=== PATIENT | female | born 1960 | race Caucasian/White ===

== ENCOUNTER 2016-12-11 18:01 | Outpatient (CLI) | payer MEDICARE, MEDICAID | END 2016-12-11 18:02 | disposition home or self-care (01) | DX: Z79.899 Other long term (current) drug therapy (principal) ==

== ENCOUNTER 2017-05-20 11:32 | Outpatient (CLI) | payer MEDICARE, MEDICAID ==
--- NOTE | 2017-05-20 17:54 | CT Report ---
CT CHEST WITHOUT CONTRAST: 05/20/2017 CLINICAL INDICATION: Solitary pulmonary nodule. Axial CT images of the chest were obtained without intravenous contrast. In accordance with CT protocol optimization, one or more of the following dose reduction techniques w ere utilized for this exam: automated exposure control, adjustment of mA and/or KV based on patient size, or use of iterative reconstructive technique. COMPARISON: 04/27/2015, 06/20/2014, 02/24/2014. The heart and great vessels are unremarkable. No hilar or mediastinal lymphadenopathy is present. T he previously noted pulmonary nodule in the anterior left lower lobe is stable, measuring 6 mm. Tiny calcified granulomas are stable. No new or enlarging pulmonary nodule is seen. No effusion or pneu mothorax is present. Limited evaluation of upper abdominal structures demonstrates normal adrenal gl ands. The previously noted hepatic cyst and hemangioma appear unchanged. Osseous structures demonst rate degenerative changes. IMPRESSION: STABLE 6 MM PULMONARY NODULE IN THE LEFT LOWER LOBE. GIVEN THREE YEAR STABILITY, FURTHE R FOLLOWUP IS NOT TYPICALLY RECOMMENDED. JOB #: [id number] EXT JOB #:[id number]
== END 2017-05-20 11:33 | disposition home or self-care (01) ==
LOC: DI 11:32
PROVIDERS: ATTEND Nurse Practitioner Gerontology
DX: R91.1 Solitary pulmonary nodule (principal)
CPT/HCPCS: 71250

== ENCOUNTER 2017-11-19 09:01 | Outpatient (CLI) | payer MEDICARE, MEDICAID ==
[2017-11-19 09:42] LABS: BASOPHILS % (AUTO) 0.9 %; EOSINOPHILS # (AUTO) 0.1 10^3/uL (0.0-0.7); EOSINOPHILS % (AUTO) 3.1 %; HGB - HEMOGLOBIN 13.4 g/dL (12.0-16.0); LYMPHOCYTES # (AUTO) 1.9 10^3/uL (1.5-3.5); LYMPHOCYTES % (AUTO) 40.3 %; MEAN CORPUSCULAR HEMOGLOBIN 30.7 pg (27.0-31.0); MEAN CORPUSCULAR HGB CONC 33.3 g/dL (32.0-36.0); MEAN CORPUSCULAR VOLUME 92.2 fL (81.0-99.0); MEAN PLATELET VOLUME 7.3 fL (7.9-10.8); MONOCYTES # (AUTO) 0.3 10^3/uL (0.0-1.0); MONOCYTES % (AUTO) 6.7 %; NEUTROPHILS # (AUTO) 2.3 10^3/uL (1.5-6.6); PLT - PLATELET COUNT 452 10^3/uL (130-450); RED BLOOD COUNT 4.38 10^6/uL (4.20-5.40); RED CELL DISTRIBUTION WIDTH 13.6 % (12.0-15.0); WHITE BLOOD COUNT 4.7 x10^3/uL (4.8-10.8)
[2017-11-19 09:51] LABS: HB2 TOTAL 14.5 g/dL; HEMOGLOBIN A1C 0.61 g/dL
[2017-11-19 09:58] LABS: ALBUMIN 4.2 g/dL (3.2-5.5); ALBUMIN/GLOBULIN RATIO 1.4 (1.0-2.2); ALKALINE PHOSPHATASE 65 IU/L (42-121); ALT ALANINE AMINOTRANSFERASE 21 IU/L (10-60); AST ASPARTATE AMINOTRANSFERASE 21 IU/L (10-42); BILIRUBIN,TOTAL 0.8 mg/dL (0.2-1.0); BUN - BLOOD UREA NITROGEN 13 mg/dL (6-20); CALCIUM 9.3 mg/dL (8.5-10.3); CARBON DIOXIDE - CO2 25 mmol/L (21-32); CHLORIDE 103 mmol/L (101-111); CHOL/HDL RATIO 3.3 (<4.4); CHOLESTEROL 168 mg/dL; CREATININE 0.7 mg/dL (0.4-1.0); GFR - MDRD 87 (>89); GLUCOSE 102 mg/dL (70-100); HDL CHOLESTEROL 51 mg/dL; LDL CHOLESTEROL,CALCULATED 92 mg/dL; LDL/HDL RATIO 1.8 (<4.4); PHOSPHORUS 3.3 mg/dL (2.5-4.6); SODIUM 136 mmol/L (135-145); TOTAL PROTEIN 7.1 g/dL (6.7-8.2); VLDL CHOLESTEROL 25 mg/dL
[2017-11-19 10:10] LABS: THYROID STIMULATING HORMONE 1.87 uIU/mL (0.34-5.60)
[2017-11-19 10:17] LABS: PROLACTIN 127.7 ng/mL
== END 2017-11-19 09:02 | disposition home or self-care (01) ==
LOC: LAB 09:01
PROVIDERS: ATTEND Nurse Practitioner Gerontology
DX: Z13.9 Encounter for screening, unspecified (principal); R73.9 Hyperglycemia, unspecified; E78.5 Hyperlipidemia, unspecified; E22.1 Hyperprolactinemia; Z79.899 Other long term (current) drug therapy
CPT/HCPCS: 36415; 80053; 80061; 82306; 83036; 83721; 83970; 84100; 84146; 84443; 85025

== ENCOUNTER 2017-12-09 10:04 | Outpatient (CLI) | payer MEDICARE, MEDICAID ==
--- NOTE | 2017-12-10 14:05 | DEXA Report ---
DEXA SCAN: 12/09/2017 CLINICAL INDICATION: Postmenopausal. TECHNIQUE: Dual energy x-ray absorptiometry (DXA) was performed on a [employer] system. Regions measured are the AP spine, femoral neck, and, if needed, forearm. COMPARISON: None. In accordance with the International Society for Clinical Densitometry (ISCD) guidelines, data from previous exams may be reanalyzed using current recommendations and techniques. This is done to allow a more accurate basis for comparison with the current study. FINDINGS Data for the lumbar spine is as follows: REGION BMD (g/cm/cm) T-SCORE Z-SCORE L1 0.907 -1.9 -0.8 L2 0.866 -2.8 -1.7 L3 0.891 -2.6 -1.5 L4 0.852 -2.9 -1.8 L1-L4 0.877 -2.5 -1.4 NOTE: All evaluable vertebrae are used for classification. Data for the hip is as follows: REGION BMD (g/cm/cm) T-SCORE Z-SCORE Neck 0.741 -2.1 -0.9 TOTAL 0.821 -1.5 -0.6 NOTE: The femoral neck or total proximal femur, whichever is lowest, is used for classification. IMPRESSION THE WHO CLASSIFICATION BASED ON THE INTERNATIONAL REFERENCE STANDARD IS OSTEOPOROSIS. THE FRACTURE RISK IS HIGH. RECOMMENDATION: Patients with diagnosis of osteoporosis or osteopenia should have regular bone mineral density assessment. For those eligible for Medicare, routine testing is allowed once every 2 years. Testing frequency can be increased for patients who have rapidly progressing disease or for those who are receiving medical therapy to restore bone mass. COMMENT World Health Organization (WHO) definitions for osteoporosis and osteopenia: NORMAL BMD: T-score at 1.0 or higher, fracture risk is low. OSTEOPENIA BMD: T-score between 1.0 and -2.5, fracture risk is increased. OSTEOPOROSIS BMD: T-score at 2.5 or lower, fracture risk high. National Osteoporosis Foundation recommends: 1. Obtain adequate dietary calcium (at least 1200 mg per day) and vitamin D (400 -800 international units per day). 2. Participate, as appropriate, in regular weightbearing and muscle- strengthening exercise. 3. Avoid tobacco use and reduce alcohol and caffeine intake. 4. For more detailed information see the website at www.NOF.org. TD: 12/09/2017 12:41 MTDD
== END 2017-12-09 10:05 | disposition home or self-care (01) ==
LOC: DI 10:04
PROVIDERS: ATTEND Nurse Practitioner Gerontology
DX: M81.0 Age-related osteoporosis without current pathological fracture (principal)
CPT/HCPCS: 77080

== ENCOUNTER 2018-05-21 10:10 | Outpatient (CLI) | payer MEDICARE, MEDICAID ==
--- NOTE | 2018-05-21 12:07 | XRAY Report ---
Reason: ABNORMAL BREATH SOUNDS Procedure Date: 05/21/2018 Accession Number: [id number] / [id number] Procedure: XR - Chest 2 View X-Ray CPT Code: 43776 FULL RESULT: EXAM: CHEST RADIOGRAPHY EXAM DATE: 05/21/2018 10:25 AM. CLINICAL HISTORY: ABNORMAL BREATH SOUNDS. COMPARISON: Chest CT 05/20/2017. TECHNIQUE: 2 views. FINDINGS: Lungs/Pleura: There is stable appearing scar and/or atelectasis of the lingula. This finding likely obscures a small pulmonary nodule of the lingula that was seen on prior CT. Mediastinum: Heart and mediastinal contours appears otherwise unremarkable. IMPRESSION: Stable appearing scar and/or atelectasis of the lingula Pulmonary nodule seen on prior CT is likely obscured by this finding. RADIA
== END 2018-05-21 10:11 | disposition home or self-care (01) ==
LOC: DI 10:10
PROVIDERS: ATTEND Nurse Practitioner Gerontology
DX: R09.89 Other specified symptoms and signs involving the circulatory and respiratory systems (principal)
CPT/HCPCS: 71046

== ENCOUNTER 2019-01-06 08:00 | Outpatient (CLI) | payer MEDICARE, MEDICAID ==
[2019-01-06 13:13] LABS: HB2 TOTAL 14.9 g/dL; HEMOGLOBIN A1C 0.59 g/dL; HEMOGLOBIN A1C % 5.8 % (4.6-6.2)
[2019-01-06 13:16] LABS: ALBUMIN 4.1 g/dL (3.2-5.5); ALBUMIN/GLOBULIN RATIO 1.6 (1.0-2.2); ALKALINE PHOSPHATASE 39 IU/L (42-121); ALT ALANINE AMINOTRANSFERASE 21 IU/L (10-60); AST ASPARTATE AMINOTRANSFERASE 22 IU/L (10-42); BILIRUBIN,TOTAL 0.6 mg/dL (0.2-1.0); BUN - BLOOD UREA NITROGEN 15 mg/dL (6-20); CALCIUM 9.4 mg/dL (8.5-10.3); CARBON DIOXIDE - CO2 27 mmol/L (21-32); CHLORIDE 100 mmol/L (101-111); CHOL/HDL RATIO 3.2 (<4.4); CHOLESTEROL 135 mg/dL; CREATININE 0.8 mg/dL (0.4-1.0); GFR - MDRD 74 (>89); GLUCOSE 103 mg/dL (70-100); HDL CHOLESTEROL 42 mg/dL; LDL CHOLESTEROL,CALCULATED 70 mg/dL; LDL/HDL RATIO 1.7 (<4.4); SODIUM 134 mmol/L (135-145); TOTAL PROTEIN 6.6 g/dL (6.7-8.2); VLDL CHOLESTEROL 23 mg/dL
== END 2019-01-06 23:59 | disposition home or self-care (01) ==
LOC: LAB.N 08:00
PROVIDERS: ATTEND Licensed Practical Nurse
DX: F25.9 Schizoaffective disorder, unspecified (principal); Z79.899 Other long term (current) drug therapy
CPT/HCPCS: 36415; 80053; 80061; 83036; 83721; 84146

== ENCOUNTER 2019-01-21 08:25 | Outpatient (CLI) | payer MEDICARE, MEDICAID ==
--- NOTE | 2019-01-22 11:19 | Mammography Report ---
Reason: SCREENING EXAM FOR BREAST CANCER Procedure Date: 01/21/2019 Accession Number: [id number] / [id number] Procedure: MGN - Screening Mammo Dig Bilat CPT Code: FULL RESULT: EXAM: Screening Mammo Dig Bilat DATE: 01/21/2019 9:00 AM CLINICAL HISTORY: Routine screening TECHNIQUE: (B) - Bilateral CC and MLO views were obtained. COMPARISON: 02/05/2016 PARENCHYMAL PATTERN: (D) - The breasts demonstrate heterogeneously dense fibroglandular parenchyma bilaterally. FINDINGS: No significant interval change. Innumerable scattered benign-appearing calcifications are again appreciated. There are no new suspicious masses, calcifications, or areas of distortion. IMPRESSION: Negative examination. BI-RADS category 1. RECOMMENDATION: (ANNUAL) - Recommend routine annual screening mammography. BI-RADS CATEGORY: (1) - Negative. STANDARD QUALIFYING STATEMENTS: 1. This examination was not reviewed with the aid of Computer-Aided Detection (CAD). 2. A negative or benign imaging report should not preclude biopsy if clinically suspicious findings are present. 3. Dense breasts may obscure an underlying neoplasm. 4. This examination was reviewed without the aid of 3D breast imaging (tomosynthesis).
== END 2019-01-21 08:26 | disposition home or self-care (01) ==
LOC: DI.N 08:25
PROVIDERS: ATTEND Nurse Practitioner Gerontology
DX: Z12.31 Encounter for screening mammogram for malignant neoplasm of breast (principal)
CPT/HCPCS: 77067

== ENCOUNTER 2020-03-16 09:03 | Outpatient (CLI) | payer MEDICARE, MEDICAID ==
[2020-03-16 12:05] LABS: BASOPHILS % (AUTO) 0.6 %; EOSINOPHILS # (AUTO) 0.1 10^3/uL (0.0-0.7); EOSINOPHILS % (AUTO) 1.4 %; HGB - HEMOGLOBIN 13.9 g/dL (12.0-16.0); LYMPHOCYTES # (AUTO) 1.9 10^3/uL (1.5-3.5); LYMPHOCYTES % (AUTO) 27.5 %; MEAN CORPUSCULAR HEMOGLOBIN 33.7 pg (27.0-31.0); MEAN CORPUSCULAR HGB CONC 35.4 g/dL (32.0-36.0); MEAN CORPUSCULAR VOLUME 95.4 fL (81.0-99.0); MEAN PLATELET VOLUME 9.8 fL (7.9-10.8); MONOCYTES # (AUTO) 0.4 10^3/uL (0.0-1.0); MONOCYTES % (AUTO) 5.7 %; NEUTROPHILS # (AUTO) 4.5 10^3/uL (1.5-6.6); NEUTROPHILS % (AUTO) 64.5 %; PLT - PLATELET COUNT 433 10^3/uL (130-450); RED BLOOD COUNT 4.12 10^6/uL (4.20-5.40); RED CELL DISTRIBUTION WIDTH 11.9 % (12.0-15.0); WHITE BLOOD COUNT 6.9 x10^3/uL (4.8-10.8)
[2020-03-16 13:07] LABS: ALBUMIN 4.7 g/dL (3.2-5.5); ALBUMIN/GLOBULIN RATIO 1.8 (1.0-2.2); ALKALINE PHOSPHATASE 47 IU/L (42-121); ALT ALANINE AMINOTRANSFERASE 26 IU/L (10-60); AST ASPARTATE AMINOTRANSFERASE 22 IU/L (10-42); BILIRUBIN,TOTAL 0.9 mg/dL (0.2-1.0); BUN - BLOOD UREA NITROGEN 9 mg/dL (6-20); CALCIUM 9.3 mg/dL (8.5-10.3); CARBON DIOXIDE - CO2 27 mmol/L (21-32); CHLORIDE 97 mmol/L (101-111); CHOL/HDL RATIO 2.2 (<4.4); CHOLESTEROL 146 mg/dL; CREATININE 0.9 mg/dL (0.4-1.0); GLUCOSE 106 mg/dL (70-100); HDL CHOLESTEROL 66 mg/dL; LDL CHOLESTEROL,CALCULATED 67 mg/dL; SODIUM 129 mmol/L (135-145); TOTAL PROTEIN 7.3 g/dL (6.7-8.2); VLDL CHOLESTEROL 13 mg/dL
[2020-03-16 13:18] LABS: PROLACTIN 95.61 ng/mL
== END 2020-03-16 23:59 | disposition home or self-care (01) ==
LOC: LAB.WCP 09:03
PROVIDERS: ATTEND Nurse Practitioner Family
DX: I10 Essential (primary) hypertension (principal); J44.9 Chronic obstructive pulmonary disease, unspecified; R73.9 Hyperglycemia, unspecified; E78.5 Hyperlipidemia, unspecified; Z79.899 Other long term (current) drug therapy; F20.9 Schizophrenia, unspecified
CPT/HCPCS: 36415; 80053; 80061; 81599; 83036; 83721; 84146; 84443; 85025

== ENCOUNTER 2020-03-31 08:13 | Outpatient (CLI) | payer MEDICARE, MEDICAID ==
[2020-03-31 12:56] LABS: CALCIUM 9.6 mg/dL (8.5-10.3)
== END 2020-03-31 23:59 | disposition home or self-care (01) ==
LOC: LAB.WCP 08:13
PROVIDERS: ATTEND Nurse Practitioner Family
DX: E87.1 Hypo-osmolality and hyponatremia (principal)
CPT/HCPCS: 36415; 80048

== ENCOUNTER → 2020-06-14 | Outpatient (CLI) | payer MEDICARE, MEDICAID ==
[2020-06-14 12:05] LABS: CALCIUM 9.8 mg/dL (8.5-10.3); CREATININE 0.8 mg/dL (0.4-1.0)
[2020-06-14 12:34] LABS: HEMOGLOBIN A1c% 5.8 % (4.27-6.07)
== END ==
LOC: LAB.WCP 07:04
PROVIDERS: ATTEND Nurse Practitioner Family
DX: R73.9 Hyperglycemia, unspecified (principal)
CPT/HCPCS: 36415; 80048; 83036

== ENCOUNTER 2020-10-23 08:00 | Outpatient (CLI) | payer MEDICARE, MEDICAID ==
[2020-10-23 12:43] LABS: ALBUMIN 4.4 g/dL (3.2-5.5); ALBUMIN/GLOBULIN RATIO 1.8 (1.0-2.2); BILIRUBIN,TOTAL 0.7 mg/dL (0.2-1.0); CALCIUM 9.9 mg/dL (8.5-10.3); CREATININE 0.8 mg/dL (0.4-1.0); POTASSIUM 4.1 mmol/L (3.5-5.0); TOTAL PROTEIN 6.9 g/dL (6.7-8.2)
[2020-10-23 13:03] LABS: ESTIMATED AVERAGE GLUCOSE 126 mg/dL (70-100)
== END 2020-10-23 23:59 | disposition home or self-care (01) ==
LOC: LAB.WCP 08:00
PROVIDERS: ATTEND Psychiatry & Neurology Psychiatry
DX: F25.0 Schizoaffective disorder, bipolar type (principal)
CPT/HCPCS: 36415; 80053; 80061; 83036; 83721; 84146

== ENCOUNTER 2021-05-10 07:55 | Outpatient (CLI) | payer MEDICARE, MEDICAID ==
[2021-05-10 12:29] LABS: BASOPHILS % (AUTO) 0.5 %; EOSINOPHILS # (AUTO) 0.1 10^3/uL (0.0-0.7); EOSINOPHILS % (AUTO) 1.7 %; HCT - HEMATOCRIT 41.6 % (37.0-47.0); HGB - HEMOGLOBIN 13.7 g/dL (12.0-16.0); LYMPHOCYTES # (AUTO) 2.3 10^3/uL (1.5-3.5); LYMPHOCYTES % (AUTO) 30.8 %; MEAN CORPUSCULAR HEMOGLOBIN 32.2 pg (27.0-31.0); MEAN CORPUSCULAR HGB CONC 32.9 g/dL (32.0-36.0); MEAN CORPUSCULAR VOLUME 97.7 fL (81.0-99.0); MEAN PLATELET VOLUME 10.1 fL (7.9-10.8); MONOCYTES # (AUTO) 0.4 10^3/uL (0.0-1.0); MONOCYTES % (AUTO) 5.4 %; NEUTROPHILS # (AUTO) 4.7 10^3/uL (1.5-6.6); NEUTROPHILS % (AUTO) 61.3 %; PLT - PLATELET COUNT 417 10^3/uL (130-450); RED BLOOD COUNT 4.26 10^6/uL (4.20-5.40); RED CELL DISTRIBUTION WIDTH 12.3 % (12.0-15.0); WHITE BLOOD COUNT 7.6 x10^3/uL (4.8-10.8)
[2021-05-10 12:33] LABS: ALBUMIN 4.2 g/dL (3.2-5.5); ALBUMIN/GLOBULIN RATIO 1.6 (1.0-2.2); ALKALINE PHOSPHATASE 46 IU/L (42-121); ALT ALANINE AMINOTRANSFERASE 30 IU/L (10-60); AST ASPARTATE AMINOTRANSFERASE 24 IU/L (10-42); BUN - BLOOD UREA NITROGEN 12 mg/dL (6-20); CALCIUM 9.7 mg/dL (8.5-10.3); CARBON DIOXIDE - CO2 26 mmol/L (21-32); CHLORIDE 101 mmol/L (101-111); CHOL/HDL RATIO 2.7 (<4.4); CHOLESTEROL 159 mg/dL; CREATININE 0.8 mg/dL (0.4-1.0); GFR - MDRD 73 (>89); GLUCOSE 104 mg/dL (70-100); HDL CHOLESTEROL 58 mg/dL; LDL CHOLESTEROL,CALCULATED 77 mg/dL; LDL/HDL RATIO 1.3 (<4.4); POTASSIUM 4.4 mmol/L (3.5-5.0); SODIUM 135 mmol/L (135-145); TOTAL PROTEIN 6.9 g/dL (6.7-8.2); TRIGLYCERIDES 120 mg/dL; VLDL CHOLESTEROL 24 mg/dL
[2021-05-10 12:47] LABS: THYROID STIMULATING HORMONE 1.85 uIU/mL (0.34-5.60)
[2021-05-10 12:53] LABS: ESTIMATED AVERAGE GLUCOSE 128 mg/dL (70-100); HEMOGLOBIN A1c% 6.1 % (4.27-6.07)
== END 2021-05-10 23:59 | disposition home or self-care (01) ==
LOC: LAB.WCP 07:55
PROVIDERS: ATTEND Nurse Practitioner Family
DX: E87.1 Hypo-osmolality and hyponatremia (principal); E78.5 Hyperlipidemia, unspecified; I10 Essential (primary) hypertension
CPT/HCPCS: 36415; 80053; 80061; 83036; 83721; 84443; 85025

== ENCOUNTER 2021-06-08 13:50 | Emergency (ER) | payer MEDICARE, MEDICAID ==
--- NOTE | 2021-06-08 14:10 | ED Physician Documentation ---
PD HPI MHE - Stated complaint Stated Complaint: MHE - Chief complaint Chief Complaint: MHE - History obtained from History obtained from: Patient - History of Present Illness Timing - onset: Today Pain level max: 0 Pain level now: 0 - Additional information Additional information: Patient is a 61-year-old female who has a history of schizophrenia versus schizoaffective disorder. She states that she had been on Risperdal 3 mg at home as well as Seroquel 100 mg at night. She states that she ran out of her Seroquel and that her psychiatrist is not available to refill the medication until Friday. She states that she has been off it for a few days and feels the voices are increasing. She states that the voices are not telling her to harm herself or anyone else. She does not feel suicidal or homicidal. She has an appointment on Friday with her psychiatrist. She is requesting a refill of her Seroquel. 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: Ovarian cysts : Retention, Frequency HEENT: Chronic sinusitis Psych: Depression, Anxiety, Schizophrenia, Panic attacks Musculoskeletal: None Derm: Other - Past Surgical History Past Surgical History: Yes /DEPARTMENT STORE GENERAL MANAGER: Dilation and currettage, Other - Present Medications Home Medications: Ambulatory Orders Medication Instructions Recorded Confirmed Metformin HCl [Metformin HCl ER] 250 mg PO BID 01/12/13 03/17/15 Quetiapine Fumarate [Seroquel] 100 mg PO DAILY 01/12/13 03/17/15 Risperidone [Risperdal] 3 mg PO DAILY 01/12/13 03/17/15 raNITIdine HCL [Ranitidine HCl] 150 mg PO BID 01/12/13 03/17/15 Atorvastatin Calcium [Lipitor] 10 mg ORAL DAILY 03/17/15 03/17/15 Aspirin [Aspir 81] 81 mg PO DAILY 03/20/15 03/20/15 QUEtiapine [SEROquel] 100 mg PO QPM #30 tablet 06/08/21 - Allergies Allergies/Adverse Reactions: Allergies Allergy/AdvReac Type Severity Reaction Status Date / Time Penicillins Allergy Intermediate Hives Verified 06/08/21 13:54 Sulfa (Sulfonamide Allergy Intermediate Hives Verified 06/08/21 13:54 Antibiotics) Antihistamines - Alkylamine Allergy Hives Verified 06/08/21 13:54 - Social History Does the pt smoke?: Yes Smoking Status: Current every day smoker Does the pt drink ETOH?: No Does the pt have substance abuse?: No - Immunizations Immunizations are current?: Yes - POLST Patient has POLST: No PD ED PE NORMAL - Vitals Vital signs reviewed: Yes - General General: Alert and oriented X 3, No acute distress - HEENT HEENT: Moist mucous membranes - Neck Neck: Supple, no meningeal sign - Cardiac Cardiac: RRR, Strong equal pulses - Respiratory Respiratory: No respiratory distress, Clear bilaterally - Abdomen Abdomen: Soft, Non tender, Non distended - Derm Derm: Warm and dry - Neuro Neuro: Alert and oriented X 3 - Psych Psych: Normal mood, Normal affect Results - Vitals Vitals: Vital Signs - 24 hr 06/08/21 13:54 Temperature 37.0 C Heart Rate 110 H Respiratory 18 Rate Blood Pressure 146/85 H O2 Saturation 99 Oxygen O2 Source Room air PD MEDICAL DECISION MAKING - ED course Complexity details: considered differential, d/w patient ED course: Patient does not feel that she needs hospitalization. She is not suicidal or homicidal. She is well-kept. Well-appearing. We will refill her Seroquel for her and have her follow-up with her psychiatrist on Friday as scheduled. Patient counseled regarding signs and symptoms for which I believe and urgent re- evaluation would be necessary. Patient with good understanding of and agreement to plan and is comfortable going home at this time This document was made in part using voice recognition software. While efforts are made to proofread this document, sound alike and grammatical errors may occur. Departure - Departure Disposition: 01 Home, Self Care Clinical Impression: Hallucinations Condition: Good Instructions: ED Psychosis Follow-Up: your,doctor on Friday [Other] Prescriptions: QUEtiapine [SEROquel] 100 mg PO QPM #30 tablet Comments: Your prescriptions were sent to [facility] in [place]. Please follow-up with your doctor on Friday as scheduled for further adjustment of your medications. Return if you worsen. Crisis Line and is available to talk to someone [email or web address] is also available to chat with someone online if you prefer. There are also many resources on this website and apps for your phone to help with your mental health You can also text the word START to [phone] to chat with someome via text.
[2021-06-08 14:18] VITALS: BP 144/84
== END 2021-06-08 14:18 | disposition home or self-care (01) ==
LOC: ED 13:50
DX: R44.0 Auditory hallucinations (principal); T43.596A Underdosing of other antipsychotics and neuroleptics, initial encounter; Z91.138 Patient's unintentional underdosing of medication regimen for other reason; Z76.0 Encounter for issue of repeat prescription; E11.9 Type 2 diabetes mellitus without complications; Z79.84 Long term (current) use of oral hypoglycemic drugs; Z79.82 Long term (current) use of aspirin; F17.200 Nicotine dependence, unspecified, uncomplicated
CPT/HCPCS: 99282; 99284

== ENCOUNTER 2021-09-22 19:57 | Outpatient (CLI) | payer MEDICARE, MEDICAID | END 2021-09-22 19:58 | disposition EMS.NT | LOC: EMS 19:57 | DX: R44.0 Auditory hallucinations (principal) ==

== ENCOUNTER 2021-09-24 11:29 | Outpatient (CLI) | payer MEDICARE, MEDICAID | END 2021-09-24 11:30 | disposition critical access hospital (66) | LOC: EMS 11:29 | DX: R41.0 Disorientation, unspecified (principal); R44.0 Auditory hallucinations | CPT/HCPCS: A0425; A0429 ==

== ENCOUNTER 2021-09-24 11:48 | Emergency (ER) | payer MEDICARE, MEDICAID ==
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
[2021-09-24 13:04] LABS: BASOPHILS % (AUTO) 0.5 %; EOSINOPHILS # (AUTO) 0.1 10^3/uL (0.0-0.7); EOSINOPHILS % (AUTO) 1.1 %; LYMPHOCYTES # (AUTO) 1.7 10^3/uL (1.5-3.5); LYMPHOCYTES % (AUTO) 25.8 %; MEAN CORPUSCULAR HEMOGLOBIN 33.1 pg (27.0-31.0); MEAN CORPUSCULAR HGB CONC 36.4 g/dL (32.0-36.0); MEAN CORPUSCULAR VOLUME 90.9 fL (81.0-99.0); MEAN PLATELET VOLUME 8.5 fL (7.9-10.8); MONOCYTES # (AUTO) 0.5 10^3/uL (0.0-1.0); MONOCYTES % (AUTO) 8.4 %; NEUTROPHILS # (AUTO) 4.1 10^3/uL (1.5-6.6); NEUTROPHILS % (AUTO) 63.6 %; PLT - PLATELET COUNT 387 10^3/uL (130-450); RED BLOOD COUNT 3.63 10^6/uL (4.20-5.40); RED CELL DISTRIBUTION WIDTH 11.7 % (12.0-15.0); WHITE BLOOD COUNT 6.4 x10^3/uL (4.8-10.8)
[2021-09-24 13:18] LABS: ALBUMIN 4.1 g/dL (3.2-5.5); ALBUMIN/GLOBULIN RATIO 1.7 (1.0-2.2); BILIRUBIN,TOTAL 0.5 mg/dL (0.2-1.0); CALCIUM 9.1 mg/dL (8.5-10.3); CREATININE 0.8 mg/dL (0.4-1.0); POTASSIUM 4.3 mmol/L (3.5-5.0); TOTAL PROTEIN 6.5 g/dL (6.7-8.2)
--- NOTE | 2021-09-24 15:03 | CT Report ---
PROCEDURE: HEAD WO INDICATIONS: altered mental status TECHNIQUE: Noncontrast 4.5 mm thick angled axial sections acquired from the foramen magnum to the vertex. For r adiation dose reduction, the following was used: automated exposure control, adjustment of mA and/or kV according to patient size. COMPARISON: None. FINDINGS: BRAIN PARENCHYMA: Normal parenchymal density. No acute cortical based (large territory) infarction, i ntracranial hemorrhage, mass or mass effect, or abnormal fluid collection. The density in the larger dural venous sinuses is grossly normal. VENTRICLES: Normal in size, shape, and position. BONES/SINUSES: The skull base and calvarium demonstrate no acute abnormality. The paranasal sinuses a nd mastoid air cells are well aerated. IMPRESSION: 1.No acute intracranial abnormality. Reviewed by: Juventino Brantley MD on 09/24/2021 3:01 PM [facility] Approved by: Juventino Brantley MD on 09/24/2021 3:01 PM [facility] Station ID: [id number]
[2021-09-24 16:05] VITALS: BP 128/82
[2021-09-24 16:08] LABS: MUDS CUTOFF CONCENTRATIONS CUTOFF CONC BELOW:
[2021-09-24 16:11] LABS: BILIRUBIN,URINE NEGATIVE (NEGATIVE); GLUCOSE, URINE (UA) NEGATIVE (NEGATIVE); KETONES,URINE (UA) TRACE mg/dL (NEGATIVE); LEUKOCYTE ESTERASE, URINE NEGATIVE (NEGATIVE); NITRITE,URINE NEGATIVE (NEGATIVE); OCCULT BLOOD,URINE MODERATE (NEGATIVE); PH,URINE 6.5 PH (5.0-7.5); PROTEIN,URINE NEGATIVE (NEGATIVE); UROBILINOGEN,URINE 0.2 (NORMAL) E.U./dL (NORMAL)
[2021-09-24 16:12] LABS: CLARITY,URINE CLEAR (CLEAR)
[2021-09-24 16:18] LABS: WBC,URINE 0-3 /HPF (0-5)
[2021-09-24 16:19] LABS: BACTERIA,URINE Rare /HPF (None Seen); SQUAMOUS EPITHELIAL CELL,UR FEW Squamous (<= Few)
[2021-09-24 16:21] LABS: AMPHETAMINE SCREEN,URINE NEGATIVE (NEGATIVE); BARBITURATE SCREEN,UR NEGATIVE (NEGATIVE); BENZODIAZEPINES SCREEN, URINE NEGATIVE (NEGATIVE); COCAINE SCREEN URINE NEGATIVE (NEGATIVE); METHADONE SCREEN, URINE NEGATIVE (NEGATIVE); METHAMPHETAMINES SCREEN, URINE NEGATIVE (NEGATIVE); OPIATE SCREEN, URINE NEGATIVE (NEGATIVE); OXYCODONE SCREEN, URINE NEGATIVE (NEGATIVE); PROPOXYPHENE SCREEN, URINE NEGATIVE (NEGATIVE); THC CANNABINOID SCREEN, URINE NEGATIVE (NEGATIVE); TRICYCLIC ANTIDEPRESSANT,URINE NEGATIVE (NEGATIVE)
== END 2021-09-24 16:58 | disposition home or self-care (01) ==
LOC: EDUNIT# → ED 11:48
DX: R41.0 Disorientation, unspecified (principal); F17.200 Nicotine dependence, unspecified, uncomplicated
CPT/HCPCS: 36415; 70450; 80053; 80306; 81001; 83690; 85025; 99283; 99284; G0480; 80320; 81003; 87086

== ENCOUNTER 2021-09-26 11:02 | Outpatient (CLI) | payer MEDICARE, MEDICAID | END 2021-09-26 11:03 | disposition critical access hospital (66) | LOC: EMS 11:02 | DX: R41.0 Disorientation, unspecified (principal); E87.1 Hypo-osmolality and hyponatremia | CPT/HCPCS: A0425; A0429 ==

== ENCOUNTER 2021-09-26 11:21 | Emergency (ER) | payer MEDICARE, MEDICAID ==
[2021-09-26 11:45] LABS: BASOPHILS # (AUTO) 0.1 10^3/uL (0.0-0.1); BASOPHILS % (AUTO) 0.7 %; EOSINOPHILS # (AUTO) 0.1 10^3/uL (0.0-0.7); EOSINOPHILS % (AUTO) 0.7 %; HCT - HEMATOCRIT 36.2 % (37.0-47.0); HGB - HEMOGLOBIN 12.6 g/dL (12.0-16.0); LYMPHOCYTES # (AUTO) 1.4 10^3/uL (1.5-3.5); MEAN CORPUSCULAR HEMOGLOBIN 32.7 pg (27.0-31.0); MEAN CORPUSCULAR HGB CONC 34.8 g/dL (32.0-36.0); MEAN PLATELET VOLUME 8.7 fL (7.9-10.8); MONOCYTES # (AUTO) 0.5 10^3/uL (0.0-1.0); NEUTROPHILS # (AUTO) 5.1 10^3/uL (1.5-6.6); NEUTROPHILS % (AUTO) 71.2 %; PLT - PLATELET COUNT 439 10^3/uL (130-450); RED BLOOD COUNT 3.85 10^6/uL (4.20-5.40); RED CELL DISTRIBUTION WIDTH 12.2 % (12.0-15.0); WHITE BLOOD COUNT 7.2 x10^3/uL (4.8-10.8)
--- NOTE | 2021-09-26 11:53 | ED Physician Documentation ---
History of Present Illness - Stated complaint Stated Complaint: CONFUSED - Chief complaint Chief Complaint: General - Additonal information Additional information: 61-year-old female is brought to the emergency department for evaluation of co nfusion and hyponatremia. She was seen at this emergency department on the for concerns of confusion. Found to have a sodium of 124. Patient psychiatrist called the pt's primary clinic and requested she be brought back to the ED for concerns of hyponatremia as a cause for recent confusion, though her baseline is not truly known. At baseline patient does have a past medical/mental health hi story that likely includes a bipolar disorder. Patient states that she does not want to know why she is here and simply wants to go home. She appears well cared for. States that she lives alone. States her medications as risperidone, Seroquel lisinopril and atorvastatin. Endorses tobacco but no alcohol or drug use. Urine drug screen and alcohol screen negative at her most recent visit. Head CT at that time was also unremarkable. Patient is not sure what kind of building she is in. She must be redirected frequently and attempts to simply walk out of the emergency department stating that she is going home though she does not have any apparent means of doing so. Review of Systems Constitutional: denies: Fever, Chills Eyes: reports: Reviewed and negative Ears: reports: Reviewed and negative Nose: reports: Reviewed and negative Throat: reports: Reviewed and negative Cardiac: reports: Reviewed and negative Respiratory: reports: Reviewed and negative GI: reports: Reviewed and negative : reports: Reviewed and negative Skin: reports: Reviewed and negative Musculoskeletal: reports: Reviewed and negative Neurologic: reports: Confused Psychiatric: reports: Reviewed and negative PD PAST MEDICAL HISTORY - Past Medical History Cardiovascular: High cholesterol Respiratory: Asthma Endocrine/Autoimmune: Type 2 diabetes GI: GERD THRESHER BROOMCORN: Ovarian cysts : Retention, Frequency HEENT: Chronic sinusitis Psych: Depression, Anxiety, Schizophrenia, Panic attacks Musculoskeletal: None Derm: Other - Past Surgical History Past Surgical History: Yes /THRESHER BROOMCORN: Dilation and currettage, Other - Present Medications Home Medications: Ambulatory Orders Medication Instructions Recorded Confirmed Metformin HCl [Metformin HCl ER] 250 mg PO BID 01/12/13 03/17/15 Quetiapine Fumarate [Seroquel] 100 mg PO DAILY 01/12/13 03/17/15 Risperidone [Risperdal] 3 mg PO DAILY 01/12/13 03/17/15 raNITIdine HCL [Ranitidine HCl] 150 mg PO BID 01/12/13 03/17/15 Atorvastatin Calcium [Lipitor] 10 mg ORAL DAILY 03/17/15 03/17/15 Aspirin [Aspir 81] 81 mg PO DAILY 03/20/15 03/20/15 QUEtiapine [SEROquel] 100 mg PO QPM #30 tablet 06/08/21 - Allergies Allergies/Adverse Reactions: Allergies Allergy/AdvReac Type Severity Reaction Status Date / Time Penicillins Allergy Intermediate Hives Verified 09/26/21 11:34 Sulfa (Sulfonamide Allergy Intermediate Hives Verified 09/26/21 11:34 Antibiotics) Antihistamines - Alkylamine Allergy Hives Verified 09/26/21 11:34 - Social History Does the pt smoke?: Yes Smoking Status: Current every day smoker Does the pt drink ETOH?: No Does the pt have substance abuse?: No - Immunizations Immunizations are current?: Yes - POLST Patient has POLST: No PD ED PE EXPANDED - General General: Alert, No acute distress, Well developed/nourished, Other (good hygeine; appears well cared for) - Neck Neck: Supple w/out meningeal sx. No: Adenopathy - Cardiac Cardiac: Regular Rate, Radial strong equal, Pedal strong equal, Cap refill < 2 sec. No: Murmur Present - Respiratory Respiratory: Clear to ausultation myriam. No: Distress, Labored - Abdomen Abdomen: Normal Bowel sounds. No: Tender to palpation - Back Back: Normal exam - Neuro Neuro: Confused, CNII-XII intact, Cerebellar nl, Normal gait, Normal finger nose, Normal speech. No: Nystagmus - GCS Eye Opening: Spontaneous (Confused to situation and place. Oriented to person and recent history) Motor: Obeys Commands Verbal: Confused Total: 14 - Psych Psych: Poor eye contact, Other (flat affect) Results - Vitals Vitals: Vital Signs - 24 hr 09/26/21 09/26/21 09/26/21 11:29 14:57 20:14 Temperature 36.2 C L 36.7 C Heart Rate 108 H 94 78 Respiratory 16 16 18 Rate Blood Pressure 121/80 119/74 121/69 O2 Saturation 98 98 94 09/26/21 20:33 Temperature Heart Rate 70 Respiratory 16 Rate Blood Pressure 131/69 H O2 Saturation 95 Oxygen O2 Source Room air - EKG (time done) 1749 Rate: Rate (enter#) (84) Rhythm: NSR Dwight: Normal Intervals: Normal UT QRS: Normal Ischemia: Normal ST segments Compare to prior EKG: Old EKG unavailable Computer interpretation: Agree with computer - Labs Labs: Laboratory Tests 09/26/21 09/26/21 09/26/21 11:40 11:40 11:40 WBC 7.2 RBC 3.85 L Hgb 12.6 Hct 36.2 L MCV 94.0 MCH 32.7 H MCHC 34.8 RDW 12.2 Plt Count 439 MPV 8.7 Neut # (Auto) 5.1 Lymph # (Auto) 1.4 L Stone # (Auto) 0.5 Eos # (Auto) 0.1 Baso # (Auto) 0.1 Absolute Nucleated RBC 0.00 Nucleated RBC % 0.0 Sodium 128 L Potassium 4.3 Chloride 94 L Carbon Dioxide 27 Anion Gap 7.0 BUN 9 Creatinine 0.9 Estimated GFR (MDRD) 64 L Glucose 136 H Calcium 9.2 Magnesium Total Bilirubin 0.7 AST 31 ALT 30 Alkaline Phosphatase 49 Total Creatine Kinase Total Protein 6.9 Albumin 4.4 Globulin 2.5 Albumin/Globulin Ratio 1.8 Lipase 32 TSH 1.43 Urine Color Urine Clarity Urine pH Ur Specific [place] Urine Protein Urine Glucose (UA) Urine Ketones Urine Occult Blood Urine Nitrite Urine Bilirubin Urine Urobilinogen Ur Leukocyte Esterase Urine RBC Urine WBC Ur Squamous Epith Cells Urine Bacteria Ur Microscopic Review Urine Culture Comments Nasal Adenovirus (PCR) Nasal B. parapertussis DNA (PCR) Nasal Coronavir 229E PCR Nasal Coronavir HKU1 PCR Nasal Coronavir NL63 PCR Nasal Coronavir OC43 PCR Nasal Enterovir/Rhinovir PCR Nasal Influenza B PCR Nasal Influenza A PCR Nasal Parainfluen 1 PCR Nasal Parainfluen 2 PCR Nasal Parainfluen 3 PCR Nasal Parainfluen 4 PCR Nasal RSV (PCR) Nasal B.pertussis DNA PCR Nasal C.pneumoniae (PCR) Can Human Metapneumo PCR Nasal M.pneumoniae (PCR) Nasal SARS-CoV-2 (PCR) Salicylates Urine Opiates Screen Ur Oxycodone Screen Urine Methadone Screen Ur Propoxyphene Screen Acetaminophen Ur Barbiturates Screen Ur Tricyclics Screen Ur Phencyclidine Scrn Ur Amphetamine Screen U Methamphetamines Scrn U Benzodiazepines Scrn Urine Cocaine Screen U Cannabinoids Screen Ethyl Alcohol 09/26/21 09/26/21 09/26/21 11:40 11:40 15:33 WBC RBC Hgb Hct MCV MCH MCHC RDW Plt Count MPV Neut # (Auto) Lymph # (Auto) Stone # (Auto) Eos # (Auto) Baso # (Auto) Absolute Nucleated RBC Nucleated RBC % Sodium Potassium Chloride Carbon Dioxide Anion Gap BUN Creatinine Estimated GFR (MDRD) Glucose Calcium Magnesium 2.2 Total Bilirubin AST ALT Alkaline Phosphatase Total Creatine Kinase 284 H Total Protein Albumin Globulin Albumin/Globulin Ratio Lipase TSH Urine Color Urine Clarity Urine pH Ur Specific [place] Urine Protein Urine Glucose (UA) Urine Ketones Urine Occult Blood Urine Nitrite Urine Bilirubin Urine Urobilinogen Ur Leukocyte Esterase Urine RBC Urine WBC Ur Squamous Epith Cells Urine Bacteria Ur Microscopic Review Urine Culture Comments Nasal Adenovirus (PCR) Nasal B. parapertussis DNA (PCR) Nasal Coronavir 229E PCR Nasal Coronavir HKU1 PCR Nasal Coronavir NL63 PCR Nasal Coronavir OC43 PCR Nasal Enterovir/Rhinovir PCR Nasal Influenza B PCR Nasal Influenza A PCR Nasal Parainfluen 1 PCR Nasal Parainfluen 2 PCR Nasal Parainfluen 3 PCR Nasal Parainfluen 4 PCR Nasal RSV (PCR) Nasal B.pertussis DNA PCR Nasal C.pneumoniae (PCR) Can Human Metapneumo PCR Nasal M.pneumoniae (PCR) Nasal SARS-CoV-2 (PCR) Salicylates < 6.0 Urine Opiates Screen NEGATIVE Ur Oxycodone Screen NEGATIVE Urine Methadone Screen NEGATIVE Ur Propoxyphene Screen NEGATIVE Acetaminophen < 10 L Ur Barbiturates Screen NEGATIVE Ur Tricyclics Screen NEGATIVE Ur Phencyclidine Scrn NEGATIVE Ur Amphetamine Screen NEGATIVE U Methamphetamines Scrn NEGATIVE U Benzodiazepines Scrn NEGATIVE Urine Cocaine Screen NEGATIVE U Cannabinoids Screen NEGATIVE Ethyl Alcohol < 5.0 09/26/21 09/26/21 15:33 15:33 WBC RBC Hgb Hct MCV MCH MCHC RDW Plt Count MPV Neut # (Auto) Lymph # (Auto) Stone # (Auto) Eos # (Auto) Baso # (Auto) Absolute Nucleated RBC Nucleated RBC % Sodium Potassium Chloride Carbon Dioxide Anion Gap BUN Creatinine Estimated GFR (MDRD) Glucose Calcium Magnesium Total Bilirubin AST ALT Alkaline Phosphatase Total Creatine Kinase Total Protein Albumin Globulin Albumin/Globulin Ratio Lipase TSH Urine Color YELLOW Urine Clarity CLEAR Urine pH 7.5 Ur Specific [place] 1.015 Urine Protein NEGATIVE Urine Glucose (UA) NEGATIVE Urine Ketones NEGATIVE Urine Occult Blood SMALL H Urine Nitrite NEGATIVE Urine Bilirubin NEGATIVE Urine Urobilinogen 0.2 (NORMAL) Ur Leukocyte Esterase NEGATIVE Urine RBC 0-5 Urine WBC 0-3 Ur Squamous Epith Cells RARE Squamous Urine Bacteria None Seen Ur Microscopic Review INDICATED Urine Culture Comments NOT INDICATED Nasal Adenovirus (PCR) NOT DETECTED Nasal B. parapertussis DNA (PCR) NOT DETECTED Nasal Coronavir 229E PCR NOT DETECTED Nasal Coronavir HKU1 PCR NOT DETECTED Nasal Coronavir NL63 PCR NOT DETECTED Nasal Coronavir OC43 PCR NOT DETECTED Nasal Enterovir/Rhinovir PCR NOT DETECTED Nasal Influenza B PCR NOT DETECTED Nasal Influenza A PCR NOT DETECTED Nasal Parainfluen 1 PCR NOT DETECTED Nasal Parainfluen 2 PCR NOT DETECTED Nasal Parainfluen 3 PCR NOT DETECTED Nasal Parainfluen 4 PCR NOT DETECTED Nasal RSV (PCR) NOT DETECTED Nasal B.pertussis DNA PCR NOT DETECTED Nasal C.pneumoniae (PCR) NOT DETECTED Can Human Metapneumo PCR NOT DETECTED Nasal M.pneumoniae (PCR) NOT DETECTED Nasal SARS-CoV-2 (PCR) NOT DETECTED Salicylates Urine Opiates Screen Ur Oxycodone Screen Urine Methadone Screen Ur Propoxyphene Screen Acetaminophen Ur Barbiturates Screen Ur Tricyclics Screen Ur Phencyclidine Scrn Ur Amphetamine Screen U Methamphetamines Scrn U Benzodiazepines Scrn Urine Cocaine Screen U Cannabinoids Screen Ethyl Alcohol PD MEDICAL DECISION MAKING - ED course Complexity details: reviewed old records, reviewed results, re-evaluated patient, considered differential, d/w patient, d/w family ED course: 61-year-old female was brought to the emergency department via EMS for further evaluation of reported confusion and hyponatremia. She was seen in this emergency department on the for concerns of confusion and found to have a sodium of 124. In follow-up of her recent laboratory results her psychiatrist was concerned and requested EMS be summoned to her house to bring her to the ER for further evaluation. The patient does present is mildly confused as to situation and place though she does have recall of recent events. There are no focal neuro deficits. A CT scan completed 3 days ago was unremarkable. At that time her urine tox was also negative. I have spoken on the phone with the patient's sister (calixto)who reports to me that the patient has a medical psychiatric history that includes paranoia and auditory hallucinations. She states that for the last few weeks the voices have become out of control though they do not command any specific actions. Patient has become more confused and is having difficulty managing her medications at home. She does reside at [facility] in [place]. Given worsening ability to manage health at home, increased paranoia and AH I will ask SW to evaluate pt. Pt is to see her psychiatrist this week in f/u according to her sister 1805: Patient has been seen by DCR. She will be involuntarily detained. The patient appears to be developing a cycle where she is responding to her internal stimuli and hallucinations more forcefully and is reaching the point where she does not have capacity to care for herself at home and is mismanaging her medications. She has been in soft restraints throughout much of the shift. Not because she is combative or violent but rather because she needs frequent redirection and without the restraints that she has attempted to abscond from the emergency department on at least 3 separate occasions. 1920: Patient has become increasingly agitated. Combative with staff. Yelling. Unable to be verbally redirected. She has attempted multiple times to free herself of soft restraints. Despite giving olanzapine earlier her behavior has been difficult to manage. Given her increasingly combative behavior and concern for her safety we will institute four-point locking restraints as well as give a small dose of ketamine for chemical sedation. 2049: [facility] has notified me that potentially [facility] be able to accept the patient if her sodium is at least 130 and we can ensure that her magnesium and CK are not abnormal. Therefore peripheral IV was placed after patient was chemically restrained with ketamine. At rest she is calm but any bedside intervention continues to be met with agitation and yelling as well as fighting and aggressive behaviors. Once the saline is infused a repeat BMP will be obtained. DCR continues to evaluate for patient placement. Patient will be signed out to my nighttime colleague to follow-up for DCR involuntary placement for acutely worsening psychosis Departure - Departure Clinical Impression: Acute psychosis Face to Face for Restraints - Immediate Situation Face to Face Evaluation Date: 09/26/21 Face to Face Evaluation Time: 20:40 Restraint Situation: Locking, Chemical Patient's Reactions to the Intervention: Physically safe, Fighting restraints - Behavioral Condition Attitude: Guarded Behavior: Uncooperative, Belligerent Orientation: Person, Place, Time Mood: Labile, Angry Behavioral Condition Comments: Initially she is calm after receiving 25 mg of ketamine but any bedside intervention such as starting an IV to administer saline is met with resistance agitation yelling and screaming. - Evaluation Review of Systems: Patient remains agitated but her vital signs are otherwise unremarkable. She appears safe and is quiet when not stimulated Pertinent History/Illicit Drugs/Medications/Results: Past medical history is most significant for a mental health disorder that includes auditory and visual hallucinations. Typically takes risperidone and Seroquel. Increasing hallucinations over the last week with increased inability to care for herself and properly manage her medications. - Plan Need to Continue or Terminate Violent or Chemical Restraint: We will continue to observe. May be able to discontinue the restraints if she has a short period of rest.
[2021-09-26 12:03] LABS: ALBUMIN 4.4 g/dL (3.2-5.5); ALBUMIN/GLOBULIN RATIO 1.8 (1.0-2.2); BILIRUBIN,TOTAL 0.7 mg/dL (0.2-1.0); CALCIUM 9.2 mg/dL (8.5-10.3); CREATININE 0.9 mg/dL (0.4-1.0); POTASSIUM 4.3 mmol/L (3.5-5.0); TOTAL PROTEIN 6.9 g/dL (6.7-8.2)
[2021-09-26] MEDS ORDERED: SODIUM CHLORIDE 0.9% 1,000 ML IV STA ×2 (12:03→19:22)
[2021-09-26] MEDS ORDERED: OLANZapine ODT 5 MG TABLET TL ONE (12:50)
[2021-09-26] MEDS ORDERED: OLANZapine ODT 5 MG TABLET TL STA (13:26)
[2021-09-26 13:35] LABS: ACETAMINOPHEN < 10 ug/mL (10-30); ETOH - ETHANOL < 5.0 mg/dL; SALICYLATE < 6.0 mg/dL
[2021-09-26 15:56] LABS: MUDS CUTOFF CONCENTRATIONS CUTOFF CONC BELOW:
[2021-09-26] MEDS ORDERED: risperiDONE 1 MG TABLET PO STA (16:03)
[2021-09-26 16:16] LABS: AMPHETAMINE SCREEN,URINE NEGATIVE (NEGATIVE); BARBITURATE SCREEN,UR NEGATIVE (NEGATIVE); BENZODIAZEPINES SCREEN, URINE NEGATIVE (NEGATIVE); COCAINE SCREEN URINE NEGATIVE (NEGATIVE); METHADONE SCREEN, URINE NEGATIVE (NEGATIVE); METHAMPHETAMINES SCREEN, URINE NEGATIVE (NEGATIVE); OPIATE SCREEN, URINE NEGATIVE (NEGATIVE); OXYCODONE SCREEN, URINE NEGATIVE (NEGATIVE); PROPOXYPHENE SCREEN, URINE NEGATIVE (NEGATIVE); THC CANNABINOID SCREEN, URINE NEGATIVE (NEGATIVE); TRICYCLIC ANTIDEPRESSANT,URINE NEGATIVE (NEGATIVE)
[2021-09-26 16:59] LABS: B. PARAPERTUSSIS- RESP PCR PAN NOT DETECTED; B. PERTUSSIS- RESP PCR PANEL NOT DETECTED; C. PNEUMONIAE- RESP PCR PANEL NOT DETECTED; CORONAVIRUS 229E-RESP PCR NOT DETECTED; CORONAVIRUS HKU1-RESP PCR NOT DETECTED; CORONAVIRUS NL63-RESP PCR NOT DETECTED; CORONAVIRUS OC43-RESP PCR NOT DETECTED; HUMAN METAPNEUMOVIRUS NOT DETECTED; INFLUENZA A- RESP PCR PANEL NOT DETECTED; INFLUENZA B - RESP PCR PANEL NOT DETECTED; M. PNEUMONIAE- RESP PCR PANEL NOT DETECTED; PARAINFLUENZA VIRUS 1 NOT DETECTED; PARAINFLUENZA VIRUS 2 NOT DETECTED; PARAINFLUENZA VIRUS 3 NOT DETECTED; PARAINFLUENZA VIRUS 4 NOT DETECTED; RHINOVIRUS/ENTEROVIRUS NOT DETECTED; RSV- RESP PCR PANEL NOT DETECTED; SARS-CoV-2 -RESP PCR PANEL NOT DETECTED
[2021-09-26 18:06] LABS: BILIRUBIN,URINE NEGATIVE (NEGATIVE); GLUCOSE, URINE (UA) NEGATIVE (NEGATIVE); KETONES,URINE (UA) NEGATIVE (NEGATIVE); LEUKOCYTE ESTERASE, URINE NEGATIVE (NEGATIVE); NITRITE,URINE NEGATIVE (NEGATIVE); OCCULT BLOOD,URINE SMALL (NEGATIVE); PH,URINE 7.5 PH (5.0-7.5); PROTEIN,URINE NEGATIVE (NEGATIVE); UROBILINOGEN,URINE 0.2 (NORMAL) E.U./dL (NORMAL)
[2021-09-26 18:20] LABS: CLARITY,URINE CLEAR (CLEAR)
[2021-09-26 18:23] LABS: BACTERIA,URINE None Seen /HPF (None Seen); RBC,URINE 0-5 /HPF (0-5); SQUAMOUS EPITHELIAL CELL,UR RARE Squamous (<= Few); WBC,URINE 0-3 /HPF (0-5)
[2021-09-26] MEDS ORDERED: HALOPERIDOL 5 MG/ML VIAL IM STA (19:06)
[2021-09-26] MEDS ORDERED: QUEtiapine 25 MG TABLET PO STA (19:15)
[2021-09-26] MEDS ORDERED: KETAMINE 500 MG/10 ML VIAL IM STA (19:18)
[2021-09-26 20:16] LABS: MAGNESIUM 2.2 mg/dL (1.7-2.8)
[2021-09-26] MEDS ORDERED: NICOTINE 7 MG PATCH TOP STA (21:18)
[2021-09-26 22:47] LABS: CALCIUM 8.6 mg/dL (8.5-10.3); CREATININE 0.7 mg/dL (0.4-1.0)
--- NOTE | 2021-09-27 06:04 | ED Physician Documentation ---
ED Addendum - Addendum Addendum: 09/27/21 06:03 Patient received as signout from off going physician, please see their documentation for further detail. Patient monitored carefully throughout the entirety of my shift. Did have episodes in which she needed to be redirected back into her bed. Additionally there was one episode at approximately 0400 hrs. in which she attempted to elope from the department however she was easily redirected back to her gurney. I will be signing her out to the oncoming physician with expected transfer to occur early this a.m.
[2021-09-27 06:35] VITALS: BP 131/71
[2021-09-27] MEDS ORDERED: NICOTINE 7 MG PATCH TOP SCH (09:00)
== END 2021-09-27 08:15 ==
LOC: EDUNIT# → ED 11:21
DX: F23 Brief psychotic disorder (principal); F17.200 Nicotine dependence, unspecified, uncomplicated; Z20.822 Contact with and (suspected) exposure to COVID-19; Z78.1 Physical restraint status
CPT/HCPCS: 36415; 80048; 80053; 80306; 80307; 81001; 82550; 83690; 83735; 84443; 85025; 87631; 93005; 96372; 99283; 99285; A9270; G0480; 0202U; 80320; 80329; 81003; 87086

== ENCOUNTER 2021-10-16 12:50 | Outpatient (CLI) | payer MEDICARE, MEDICAID ==
[2021-10-16 18:59] LABS: ALBUMIN 4.2 g/dL (3.2-5.5); ALBUMIN/GLOBULIN RATIO 1.9 (1.0-2.2); BILIRUBIN,TOTAL 0.7 mg/dL (0.2-1.0); CALCIUM 10.1 mg/dL (8.5-10.3); CREATININE 0.9 mg/dL (0.4-1.0); POTASSIUM 4.3 mmol/L (3.5-5.0); TOTAL PROTEIN 6.4 g/dL (6.7-8.2)
[2021-10-16 21:24] LABS: ESTIMATED AVERAGE GLUCOSE 114 mg/dL (70-100); HEMOGLOBIN A1c% 5.6 % (4.27-6.07)
== END 2021-10-16 12:51 | disposition home or self-care (01) ==
LOC: LAB.N 12:50
PROVIDERS: ATTEND Nurse Practitioner
DX: E87.1 Hypo-osmolality and hyponatremia (principal); R73.03 Prediabetes
CPT/HCPCS: 36415; 80053; 83036

== ENCOUNTER 2022-03-04 07:19 | Outpatient (CLI) | payer MEDICARE, MEDICAID ==
[2022-03-04 11:47] LABS: BUN - BLOOD UREA NITROGEN 16 mg/dL (6-20); CALCIUM 9.9 mg/dL (8.5-10.3); CARBON DIOXIDE - CO2 29 mmol/L (21-32); CHLORIDE 101 mmol/L (101-111); CHOL/HDL RATIO 2.5 (<4.4); CHOLESTEROL 168 mg/dL; CREATININE 0.8 mg/dL (0.4-1.0); GFR - MDRD 73 (>89); GLUCOSE 110 mg/dL (70-100); HDL CHOLESTEROL 67 mg/dL; LDL CHOLESTEROL,CALCULATED 87 mg/dL; LDL/HDL RATIO 1.3 (<4.4); POTASSIUM 4.1 mmol/L (3.5-5.0); SODIUM 138 mmol/L (135-145); TRIGLYCERIDES 69 mg/dL; VLDL CHOLESTEROL 14 mg/dL
== END 2022-03-04 07:20 | disposition home or self-care (01) ==
LOC: LAB.N 07:19
PROVIDERS: ATTEND Family Medicine
DX: E87.8 Other disorders of electrolyte and fluid balance, not elsewhere classified (principal); Z13.220 Encounter for screening for lipoid disorders
CPT/HCPCS: 36415; 80048; 80061; 83721

== ENCOUNTER 2022-09-04 11:29 | Outpatient (CLI) | payer MEDICARE, MEDICAID ==
[2022-09-04] MEDS ORDERED: iohexoL-300 100 ML VIAL ONE ×2 (11:38→13:14)
[2022-09-04 12:28] LABS: CREATININE 0.8 mg/dL (0.4-1.0)
[2022-09-04] MEDS ORDERED: iohexoL-300 100 ML VIAL IVP ONE (14:56)
--- NOTE | 2022-09-04 16:52 | CT Report ---
PROCEDURE: SOFT TISSUE NECK W INDICATIONS: MASS OF L PAROTID GLAND CONTRAST: 100ml Omnipaque 300 TECHNIQUE: After the administration of intravenous contrast, 3.0 mm axial sections acquired from the sella to th e aortic arch. Additional oblique axial 3.0 mm sections acquired through the pharynx. 3 mm thick co wilber reformats were generated. For radiation dose reduction, the following was used: automated exp osure control, adjustment of mA and/or kV according to patient size. COMPARISON: Correlation is made with the overlapping portions of head CT, 09/24/[address], . FINDINGS: Image quality: Excellent. Lymph nodes: No enlarged lymph nodes seen throughout the neck. However, borderline prominent lymph nodes can be seen involving both sides of the neck. Vessels: Visualized vasculature appears patent. Neck spaces: The oropharynx, nasopharynx, and pharynx demonstrate no mucosal lesions. The vocal cor ds, false vocal cords, pyriform sinuses, epiglottis, vallecula, and tongue base all appear normal. E xtramucosal spaces appear unremarkable. Glands: At the site of clinical concern (as designated by the radiopaque skin marker), there is a hy perenhancing mass involving the deep posterior aspect of the left parotid gland. This measures at luis st 18 x 17 mm in greatest axial dimension, with a craniocaudal extent of 19 mm. No additional parotid masses are seen. The right parotid gland is unremarkable. The submandibular glands demonstrate a normal, symmetric appearance. The thyroid is normal in size and there are no incidental findings. Miscellaneous: Visualized brain and orbits appear normal. Lung apices appear clear. Superficial so ft tissues appear normal. Bones: No suspicious bony lesions. Visualized sinuses and mastoids appear unremarkable. Moderate l ower cervical spine degenerative changes can be seen. IMPRESSION: There is a 19 mm hyperenhancing mass within the left parotid gland at the site of clinical concern. 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 José Luis r, differential diagnosis would also include parotid carcinoma and metastatic disease. Please consider percutaneous ultrasound-guided fine-needle aspiration, if clinically appropriate. Borderline prominent lymph nodes can be seen involving both sides of the neck, yet without mac susp icious lymph nodes seen. Reviewed by: Boris Alexadnra MD on 09/04/2022 3:51 PM [facility] Approved by: Boris Alexandra MD on 09/04/2022 3:51 PM [facility] Station ID: [id number]
== END 2022-09-04 11:30 | disposition home or self-care (01) ==
LOC: LAB 11:29
PROVIDERS: ATTEND Otolaryngology
DX: K11.8 Other diseases of salivary glands (principal); R59.0 Localized enlarged lymph nodes
CPT/HCPCS: 36415; 70491; 82565; Q9967

== ENCOUNTER 2022-10-15 09:09 | Outpatient (CLI) | payer MEDICARE, MEDICAID | END 2022-10-15 09:10 | disposition home or self-care (01) | LOC: LAB.N 09:09 | PROVIDERS: ATTEND Family Medicine | DX: E22.1 Hyperprolactinemia (principal) | CPT/HCPCS: 36415; 84146 ==

== ENCOUNTER 2023-06-13 08:12 | Outpatient (CLI) | payer MEDICARE, MEDICAID ==
[2023-06-13 12:03] LABS: BASOPHILS # (AUTO) 0.1 10^3/uL (0.0-0.1); EOSINOPHILS # (AUTO) 0.1 10^3/uL (0.0-0.7); EOSINOPHILS % (AUTO) 2.5 %; HCT - HEMATOCRIT 40.9 % (37.0-47.0); HGB - HEMOGLOBIN 13.7 g/dL (12.0-16.0); LYMPHOCYTES # (AUTO) 2.2 10^3/uL (1.5-3.5); LYMPHOCYTES % (AUTO) 42.2 %; MEAN CORPUSCULAR HEMOGLOBIN 31.6 pg (27.0-31.0); MEAN CORPUSCULAR HGB CONC 33.5 g/dL (32.0-36.0); MEAN CORPUSCULAR VOLUME 94.5 fL (81.0-99.0); MEAN PLATELET VOLUME 9.6 fL (7.9-10.8); MONOCYTES # (AUTO) 0.3 10^3/uL (0.0-1.0); MONOCYTES % (AUTO) 6.4 %; NEUTROPHILS # (AUTO) 2.4 10^3/uL (1.5-6.6); NEUTROPHILS % (AUTO) 47.7 %; PLT - PLATELET COUNT 475 10^3/uL (130-450); RED BLOOD COUNT 4.33 10^6/uL (4.20-5.40); RED CELL DISTRIBUTION WIDTH 12.4 % (12.0-15.0); WHITE BLOOD COUNT 5.1 x10^3/uL (4.8-10.8)
[2023-06-13 12:28] LABS: ESTIMATED AVERAGE GLUCOSE 120 mg/dL (70-100); HEMOGLOBIN A1c% 5.8 % (4.27-6.07)
[2023-06-13 12:32] LABS: ALBUMIN 4.5 g/dL (3.2-5.5); ALBUMIN/GLOBULIN RATIO 2.3 (1.0-2.2); ALKALINE PHOSPHATASE 52 IU/L (42-121); ALT ALANINE AMINOTRANSFERASE 15 IU/L (10-60); AST ASPARTATE AMINOTRANSFERASE 19 IU/L (10-42); BILIRUBIN,TOTAL 0.5 mg/dL (0.2-1.0); BUN - BLOOD UREA NITROGEN 13 mg/dL (6-20); CALCIUM 9.9 mg/dL (8.5-10.3); CARBON DIOXIDE - CO2 27 mmol/L (21-32); CHLORIDE 105 mmol/L (101-111); CHOL/HDL RATIO 2.7 (<4.4); CHOLESTEROL 162 mg/dL; CREATININE 0.8 mg/dL (0.6-1.3); GFR - MDRD 73 (>89); GLUCOSE 101 mg/dL (74-104); HDL CHOLESTEROL 60 mg/dL; LDL CHOLESTEROL,CALCULATED 81 mg/dL; LDL/HDL RATIO 1.4 (<4.4); POTASSIUM 4.2 mmol/L (3.5-4.5); SODIUM 139 mmol/L (135-145); TOTAL PROTEIN 6.5 g/dL (6.4-8.9); TRIGLYCERIDES 104 mg/dL (48-352); VLDL CHOLESTEROL 21 mg/dL
== END 2023-06-13 08:13 | disposition home or self-care (01) ==
LOC: LAB.N 08:12
PROVIDERS: ATTEND Nurse Practitioner
DX: I10 Essential (primary) hypertension (principal); E78.5 Hyperlipidemia, unspecified; Z51.81 Encounter for therapeutic drug level monitoring; R73.03 Prediabetes; E21.5 Disorder of parathyroid gland, unspecified
CPT/HCPCS: 36415; 80053; 80061; 83036; 83721; 83970; 84443; 85025

== ENCOUNTER 2023-07-02 08:40 | Outpatient (CLI) | payer MEDICARE, MEDICAID ==
--- NOTE | 2023-07-02 10:15 | XRAY Report ---
PROCEDURE: Humerus RT INDICATIONS: ARM PAIN TECHNIQUE: 2 views of the humerus were acquired. COMPARISON: None. FINDINGS: Bones: No fractures or dislocations. No suspicious bony lesions. Soft tissues: No suspicious soft tissue calcifications or masses. IMPRESSION: No acute bony abnormality. Reviewed by: Kojo Mclaughlin MD on 07/02/2023 10:14 AM [facility] Approved by: Kojo Mclaughlin MD on 07/02/2023 10:14 AM [facility] Station ID: [id number]
== END 2023-07-02 08:41 | disposition home or self-care (01) ==
LOC: DI 08:40
PROVIDERS: ATTEND Physician Assistant Medical
DX: M79.601 Pain in right arm (principal)

== ENCOUNTER 2023-12-10 07:33 | Outpatient (CLI) | payer MEDICARE, MEDICAID ==
[2023-12-10 11:50] LABS: BASOPHILS % (AUTO) 0.8 %; EOSINOPHILS # (AUTO) 0.2 10^3/uL (0.0-0.7); EOSINOPHILS % (AUTO) 3.1 %; HCT - HEMATOCRIT 41.5 % (37.0-47.0); HGB - HEMOGLOBIN 13.8 g/dL (12.0-16.0); LYMPHOCYTES # (AUTO) 2.1 10^3/uL (1.5-3.5); LYMPHOCYTES % (AUTO) 42.5 %; MEAN CORPUSCULAR HEMOGLOBIN 31.7 pg (27.0-31.0); MEAN CORPUSCULAR HGB CONC 33.3 g/dL (32.0-36.0); MEAN CORPUSCULAR VOLUME 95.4 fL (81.0-99.0); MEAN PLATELET VOLUME 9.5 fL (7.9-10.8); MONOCYTES # (AUTO) 0.4 10^3/uL (0.0-1.0); MONOCYTES % (AUTO) 7.6 %; NEUTROPHILS # (AUTO) 2.2 10^3/uL (1.5-6.6); NEUTROPHILS % (AUTO) 45.8 %; PLT - PLATELET COUNT 480 10^3/uL (130-450); RED BLOOD COUNT 4.35 10^6/uL (4.20-5.40); RED CELL DISTRIBUTION WIDTH 12.9 % (12.0-15.0); WHITE BLOOD COUNT 4.9 x10^3/uL (4.8-10.8)
[2023-12-10 12:18] LABS: ALBUMIN 4.3 g/dL (3.2-5.5); ALBUMIN/GLOBULIN RATIO 1.7 (1.0-2.2); ALKALINE PHOSPHATASE 49 IU/L (42-121); ALT ALANINE AMINOTRANSFERASE 17 IU/L (10-60); AST ASPARTATE AMINOTRANSFERASE 19 IU/L (10-42); BILIRUBIN,TOTAL 0.5 mg/dL (0.2-1.0); BUN - BLOOD UREA NITROGEN 13 mg/dL (6-20); CALCIUM 10.4 mg/dL (8.5-10.3); CARBON DIOXIDE - CO2 31 mmol/L (21-32); CHLORIDE 102 mmol/L (101-111); CHOL/HDL RATIO 2.6 (<4.4); CHOLESTEROL 169 mg/dL; CREATININE 0.9 mg/dL (0.6-1.3); GFR - MDRD 64 (>89); GLUCOSE 110 mg/dL (74-104); HDL CHOLESTEROL 66 mg/dL; LDL CHOLESTEROL,CALCULATED 79 mg/dL; LDL/HDL RATIO 1.2 (<4.4); POTASSIUM 4.3 mmol/L (3.5-4.5); SODIUM 137 mmol/L (135-145); TOTAL PROTEIN 6.8 g/dL (6.4-8.9); TRIGLYCERIDES 120 mg/dL (48-352); VLDL CHOLESTEROL 24 mg/dL
[2023-12-10 12:30] LABS: THYROID STIMULATING HORMONE 2.67 uIU/mL (0.34-5.60)
[2023-12-10 12:33] LABS: PROLACTIN 108.16 ng/mL
[2023-12-10 14:18] LABS: ESTIMATED AVERAGE GLUCOSE 120 mg/dL (70-100); HEMOGLOBIN A1c% 5.8 % (4.27-6.07)
== END 2023-12-10 07:34 | disposition home or self-care (01) ==
LOC: LAB.N 07:33
PROVIDERS: ATTEND Nurse Practitioner
DX: F25.9 Schizoaffective disorder, unspecified (principal); Z51.81 Encounter for therapeutic drug level monitoring
CPT/HCPCS: 36415; 80053; 80061; 83036; 83721; 84146; 84443; 85025